=== PATIENT | male | born 1965 | race Caucasian/White ===

== ENCOUNTER 2017-07-21 21:30 | Observation (INO) ==
--- NOTE | 2017-07-21 21:52 | Emergency Department Note ---
START Narrative - START START: I examined this patient and my medical decision-making was reviewed with the Resident Physician. I agree with the documented findings, disposition and treatment plan as described except to the extent set forth below. 51 year old male who was brought in via EMS for chest pain that has been going on for the past 3 days and is has been intermittment sharp and midsternal without radiation. PAtient recieved 4 baby ASA before arrival and is now chest pain free. No previous cardiac workup including stress test or cardiac catherizations. We will do cardiopulomonary workup and likelly admit ot medicien due to multifacotial risk factors.
[2017-07-21 22:10] LABS: Basophils # 0.1 K/mcL (0.0-0.2); Basophils % 0.8 %; Eosinophils # 0.1 K/mcL (0.0-0.6); Eosinophils % 1.7 %; Hematocrit 41.5 % (37.5-50.1); Hemoglobin 14.1 g/dL (12.9-16.9); Immature Granulocytes % 0.3 % (0-4); Lymphocytes # 2.6 K/mcL (0.6-4.6); Lymphocytes % 33.5 %; Mean Corpuscular Hemoglobin 29.7 pg (28.0-33.3); Mean Corpuscular Volume 87.4 fL (83.0-100.0); Mean Platelet Volume 9.4 fL (9.4-12.4); Monocytes # 0.5 K/mcL (0.0-1.3); Monocytes % 6.2 %; Neutrophils # 4.4 K/mcL (1.6-8.9); Platelet Count 243 K/mcL (140-400); Red Blood Count 4.75 M/mcL (4.19-5.50); Red Cell Distribution Width 13.2 % (11.5-14.5); Segmented Neutrophils % 57.5 %
[2017-07-21 22:15] LABS: INR 1.2; Prothrombin Time 12.5 Seconds (9.4-12.1)
[2017-07-21 22:27] LABS: BUN/Creatinine Ratio 7 (6-26); Calcium 9.6 mg/dL (8.6-10.8); Carbon Dioxide 27 mEq/L (19-29); Chloride 108 mEq/L (98-109); Glucose 119 mg/dL (70-99); Osmolality,Calculated 290 (280-300); Potassium 3.9 mEq/L (3.5-4.5); Sodium 141 mEq/L (136-145); eGFR For African Americans > 60 (> 60); eGFR For Non-African Americans > 60 (> 60)
[2017-07-21 22:28] LABS: Blood Urea Nitrogen 5 mg/dL (8-26)
--- NOTE | 2017-07-21 22:52 | Emergency Department Note ---
Disposition Clinical Impression: Chest pain Qualifiers: Chest pain type: precordial pain Qualified Code(s): R07.2 - Precordial pain Disposition: Admitted As Inpatient Condition: Good Chest Pain HPI - General Chief Complaint: ED Chest Pain Stated Complaint: chest pain Time Seen by Provider: 07/21/17 21:32 Source: patient, EMS Limitations: no limitations Vital Signs Reviewed: Yes Nursing Notes Reviewed: Yes - History of Present Illness HPI Narrative: Patient presents today for evaluation of chest pain. Patient states the chest pain began on Thursday and has had intermittent episodes of chest tightness. Patient describes this as left-sided. Is unwilling to characterize anything other than "pain". Does not describe it as sharp or dull but just a "pain that is there". Patient states that he did not initially want to come to the hospital but he has now developed associated nausea with one episode of vomiting as well as dizziness. Patient has not had any previous cardiac evaluation. No significant family history. Severity scale (1-10): 0 - Related Data Home Medications Medication Instructions Recorded Confirmed Acetaminophen [Tylenol] 500 mg PO Q6HR PRN 07/21/17 07/21/17 Duloxetine HCl [Cymbalta] 60 mg PO DAILY 07/21/17 07/21/17 Famotidine [Pepcid] 40 mg PO DAILY 07/21/17 07/21/17 Gabapentin [Neurontin] 300 mg PO TID 07/21/17 07/21/17 Meloxicam [Mobic] 7.5 mg PO BID PRN 07/21/17 07/21/17 Ondansetron HCl [Zofran] 4 mg PO TID PRN 07/21/17 07/21/17 Oxycodone HCl [Oxaydo] 5 mg PO TID PRN 07/21/17 07/21/17 Quetiapine Fumarate [Seroquel] 50 mg PO HS 07/21/17 07/21/17 Sertraline [Zoloft] 100 mg PO DAILY 07/21/17 07/21/17 Tizanidine HCl [Zanaflex] 4 mg PO HS PRN 07/21/17 07/21/17 clonazePAM [Klonopin] 1 mg PO TID PRN 07/21/17 07/21/17 Allergies Allergy/AdvReac Type Severity Reaction Status Date / Time hydrocodone AdvReac Nausea Verified 07/22/17 00:22 risperidone [From Risperdal] AdvReac Anxiety Verified 07/22/17 00:22 Review of Systems: CONSTITUTIONAL: No weight loss, fever, chills, weakness or fatigue. HEENT: Eyes: No visual changes. Ears, Nose, Throat: No hearing loss, difficulty talking or unable to swallow. SKIN: No rash or itching. CARDIOVASCULAR: Chest pain RESPIRATORY: No shortness of breath, cough or sputum. GASTROINTESTINAL: Nausea and vomiting No anorexia or diarrhea. No abdominal pain or blood. GENITOURINARY: No burning on urination or hematuria. NEUROLOGICAL: Dizziness No headache, syncope, paralysis, ataxia, numbness or tingling in the extremities. No change in bowel or bladder control. MUSCULOSKELETAL: No muscle pain, back pain, joint pain or stiffness. Chest Pain PMH - Past Medical History Medical history: Reports: no medical history, non-contributory Psychiatric history: Reports: anxiety, depression - Social History Smoking Status: Current every day smoker Alcohol use: Reports: none Drug use: Reports: none Physical Exam General appearance: NAD, conversant Eyes: anicteric sclerae, moist conjunctivae; PERRL HENT: Atraumatic; oropharynx clear with moist mucous membranes and no mucosal ulcerations Neck: Normal inspection; Trachea midline; FROM, supple Lungs: CTA, with normal respiratory effort and no intercostal retractions CV: RRR, no MRGs ; no significant tenderness to palpation Abdomen: Soft, non-tender; no rebound or gaurding Extremities: No peripheral edema or extremity lymphadenopathy Skin: Normal temperature; no rash, ulcers or lesions Psych: Appropriate mood and affect Neuro: alert and oriented to person, place and time - General Limitations: no limitations General appearance: alert Course - Reevaluation(s) Reevaluation #1: Patient with pulmonary nodule. EKG without significant elevation or depression. Troponin negative. Patient will be admitted for further evaluation and workup. - Consultations Consultation #1: Discussed with hospitalist. Patient accepted for admission. Vital Signs Temperature 98.3 F 07/21/17 21:32 Pulse Rate 84 07/21/17 21:32 Respiratory Rate 20 07/21/17 21:32 Blood Pressure 171/115 07/21/17 21:32 O2 Sat by Pulse Oximetry 99 07/21/17 21:32 Temperature 97.7 F 07/22/17 00:06 Pulse Rate 67 07/22/17 00:06 Respiratory Rate 19 07/22/17 00:06 Blood Pressure 130/75 07/22/17 00:06 O2 Sat by Pulse Oximetry 99 07/22/17 00:06 Oxygen Delivery Oxygen Delivery Room Air Chest Pain - Medical Records Medical records reviewed: Yes I reviewed the patient's medical records. - Lab Data Lab results reviewed: Yes I reviewed the patient's lab results. Result diagrams: 07/22/17 01:43 07/22/17 01:43 Lab Results 07/21/17 07/21/17 07/21/17 Range/Units 21:58 21:58 21:58 WBC 7.7 (4.3-11.1) K/mcL RBC 4.75 (4.19-5.50) M/mcL Hgb 14.1 (12.9-16.9) g/dL Hct 41.5 (37.5-50.1) % MCV 87.4 (83.0-100.0) fL MCH 29.7 (28.0-33.3) pg MCHC 34.0 (31.6-35.5) g/dL RDW 13.2 (11.5-14.5) % Plt Count 243 (140-400) K/mcL MPV 9.4 (9.4-12.4) fL Immature Gran % 0.3 (0-4) % Seg Neutrophils % 57.5 % Lymphocytes % 33.5 % Monocytes % 6.2 % Eosinophils % 1.7 % Basophils % 0.8 % Neutrophils # 4.4 (1.6-8.9) K/mcL Lymphocytes # 2.6 (0.6-4.6) K/mcL Monocytes # 0.5 (0.0-1.3) K/mcL Eosinophils # 0.1 (0.0-0.6) K/mcL Basophils # 0.1 (0.0-0.2) K/mcL PT 12.5 H (9.4-12.1) Seconds INR 1.2 Sodium (136-145) mEq/L Potassium (3.5-4.5) mEq/L Chloride (98-109) mEq/L Carbon Dioxide (19-29) mEq/L BUN (8-26) mg/dL Creatinine (0.72-1.25) mg/dL Est GFR ( Amer) (> 60) Est GFR (Non-Af Amer) (> 60) BUN/Creatinine Ratio (6-26) Glucose (70-99) mg/dL Calculated Osmolality (280-300) Calcium (8.6-10.8) mg/dL Troponin I (0-0.03) ng/mL B-Natriuretic Peptide 14 (0-100) pg/mL 07/21/17 07/21/17 Range/Units 21:58 21:58 WBC (4.3-11.1) K/mcL RBC (4.19-5.50) M/mcL Hgb (12.9-16.9) g/dL Hct (37.5-50.1) % MCV (83.0-100.0) fL MCH (28.0-33.3) pg MCHC (31.6-35.5) g/dL RDW (11.5-14.5) % Plt Count (140-400) K/mcL MPV (9.4-12.4) fL Immature Gran % (0-4) % Seg Neutrophils % % Lymphocytes % % Monocytes % % Eosinophils % % Basophils % % Neutrophils # (1.6-8.9) K/mcL Lymphocytes # (0.6-4.6) K/mcL Monocytes # (0.0-1.3) K/mcL Eosinophils # (0.0-0.6) K/mcL Basophils # (0.0-0.2) K/mcL PT (9.4-12.1) Seconds INR Sodium 141 (136-145) mEq/L Potassium 3.9 (3.5-4.5) mEq/L Chloride 108 (98-109) mEq/L Carbon Dioxide 27 (19-29) mEq/L BUN 5 L (8-26) mg/dL Creatinine 0.68 L (0.72-1.25) mg/dL Est GFR ( Amer) > 60 (> 60) Est GFR (Non-Af Amer) > 60 (> 60) BUN/Creatinine Ratio 7 (6-26) Glucose 119 H (70-99) mg/dL Calculated Osmolality 290 (280-300) Calcium 9.6 (8.6-10.8) mg/dL Troponin I 0.00 (0-0.03) ng/mL B-Natriuretic Peptide (0-100) pg/mL - Radiology Data Radiology results reviewed: Yes I reviewed the patient's radiology results. - EKG Data EKG attestation: Yes I reviewed and interpreted this EKG. EKG results narrative: EKG shows sinus rhythm with ventricular rate of 76. OH interval 166. QRS 90. QTC 388. Patient has no significant ST elevations or depressions. EKG unchanged from previous EKG of 02/08/2004. Heart Score - Score History: Moderately Suspicious EKG: Normal Age: 45-65 Risk Factors: 1-2 risk factors Troponin: Less than normal limit HEART Score Total: 3
[2017-07-21] MEDS ORDERED: 0.9 % Sodium Chloride 1,000 ML IVC ONE (22:53)
[2017-07-21] MEDS ORDERED: Ondansetron 4 MG/2 ML VIAL IVP ONE (22:54)
[2017-07-22] MEDS ORDERED: Ondansetron 4 MG/2 ML VIAL IVP PRN (01:28)
[2017-07-22] MEDS ORDERED: Acetaminophen 325 MG TABLET PO PRN (01:28)
[2017-07-22] MEDS ORDERED: Naloxone 0.4 MG/ML INJ IVP PRN (01:28)
[2017-07-22] MEDS ORDERED: tiZANidine 4 MG TABLET PO PRN (01:37)
[2017-07-22] MEDS ORDERED: clonazePAM 1 MG TABLET PO PRN (01:37)
[2017-07-22] MEDS ORDERED: Ondansetron ODT 4 MG TAB.RAPDIS PO PRN (01:37)
--- NOTE | 2017-07-22 01:45 | Internal Med History&Physical ---
Date of Encounter: 07/22/17 Time of Encounter: 00:15 Assessment and Plan (1) Vertigo Current visit: Yes Status: Acute Etiology is undetermined. Need to rule out cerebral CVA. Symptoms started from 4 days ago. - Place patient on meclizine 25 mg by mouth 3 times a day when necessary for symptoms control. - MRI brain to rule out CVA in am. Patient had back surgery, not sure there is metal inside, will check lumbar spine x-ray prior to MRI. - Zofran when necessary for nausea and vomiting. IV fluid because patient has nausea and vomiting. Follow-up BMP. (2) DVT prophylaxis Current visit: Yes Status: Acute EPCD, may start anticoagulation after MRI has rule out bleeding (less likely). (3) Anxiety Current visit: Yes Status: Acute Continue home medications. (4) Chest pain Current visit: Yes Status: Acute Etiology is undetermined. Need to rule out ACS. EKG and chest x-ray reviewed. Unremarkable. - We will check 3 sets of troponin. - Keep patient on continuous cardiac monitoring to rule out arrhythmia. - Echocardiogram. Qualifiers: Chest pain type: precordial pain Qualified Code(s): R07.2 - Precordial pain Internal Medicine - H&P: HPI Chief complaint: Dizziness Admitted From: Home Plans for Post Hospital Care: Home History of present illness: Mr. Peck is a 51 year old male with history of anxiety presented to the emergency room for dizziness. Patient said dizziness started from 4 days ago, with surrounding spinning. Patient denies tinnitus. Since 3 days ago, symptoms getting worse and patient has nausea and vomiting. Vomiting of stomach content, no blood in it. Patient denies of fever or shortness of breath. Since 3 days ago, patient has intermittent chest pain/heaviness on the left side, lasted about several second to half minute, patient described it like "skipping beats". Patient denies diaphoresis. Patient was admitted for further management. Past Med Surg Social Fam HX - Past Medical History Medical history: GERD Psychiatric history: anxiety, depression, panic disorder - Past Surgical History Surgical History: orthopedic, other (back surgery) - Social History Smoking Status: Current every day smoker Packs per day: .5 Alcohol use: none Drug use: none - Family History Mother Living Status: Still Living Hx Family Musculoskeletal Disorders: Yes (ARTHRITIS) Hx Family Psychosocial Disorders: Yes (DEPRESSION,) Internal Medicine - H&P: Meds Acetaminophen [Tylenol] 500 mg PO Q6HR PRN 07/21/17 [History] Duloxetine HCl [Cymbalta] 60 mg PO DAILY 07/21/17 [History] Famotidine [Pepcid] 40 mg PO DAILY 07/21/17 [History] Gabapentin [Neurontin] 300 mg PO TID 07/21/17 [History] Meloxicam [Mobic] 7.5 mg PO BID PRN 07/21/17 [History] Ondansetron HCl [Zofran] 4 mg PO TID PRN 07/21/17 [History] Oxycodone HCl [Oxaydo] 5 mg PO TID PRN 07/21/17 [History] Quetiapine Fumarate [Seroquel] 50 mg PO HS 07/21/17 [History] Sertraline [Zoloft] 100 mg PO DAILY 07/21/17 [History] Tizanidine HCl [Zanaflex] 4 mg PO HS PRN 07/21/17 [History] clonazePAM [Klonopin] 1 mg PO TID PRN 07/21/17 [History] 3 Allergy/AdvReac Type Severity Reaction Status Date / Time hydrocodone AdvReac Nausea Verified 07/22/17 00:22 risperidone [From Risperdal] AdvReac Anxiety Verified 07/22/17 00:22 All Systems PM: A 10-system review of systems was performed and is negative for pertinent findings except as documented above in the HPI. - Constitutional Vitals: Temp Pulse Resp BP Pulse Ox 97.7 F 67 19 130/75 99 07/22/17 00:06 07/22/17 00:06 07/22/17 00:06 07/22/17 00:06 07/22/17 00:06 General appearance: Present: A&O X 3, no acute distress, answers questions appropriately - Head Head exam: Present: atraumatic, normocephalic - Eye Eye exam: Present: PERRL, conjuntiva pink, sclera anicteric Pupils: Present: PERRL - Neck Neck exam general surgery: Present: supple, trachea midline. Absent: lymphadenopathy - Respiratory Respiratory exam: Present: CTAB. Absent: accessory muscle use, rales, rhonchi, wheezes - Cardiovascular Cardiovascular exam: Present: RRR, +S1, +S2. Absent: diastolic murmur, gallop, rubs, systolic murmur - GI/Abdominal GI/Abdominal exam: Present: normal bowel sounds, soft, no peritoneal signs. Absent: distended, tenderness - Extremities Exam Extremities exam: Present: warm, radial pulses palpable and symmetrical. Absent : calf tenderness, cyanotic, pedal edema - Neurological Exam Neurological exam: Present: CN II-XII intact, oriented X3, no focal deficits. Absent: pronater drift, facial droop, speech deficit - Skin Skin exam: Present: dry, intact Internal Med - H&P Results - Labs CBC & Chem 7: 07/21/17 21:58 07/21/17 21:58
[2017-07-22 01:50] LABS: Basophils # 0.1 K/mcL (0.0-0.2); Basophils % 1.1 %; Eosinophils # 0.2 K/mcL (0.0-0.6); Eosinophils % 3.5 %; Hematocrit 39.9 % (37.5-50.1); Hemoglobin 13.1 g/dL (12.9-16.9); Immature Granulocytes % 0.3 % (0-4); Lymphocytes # 2.5 K/mcL (0.6-4.6); Lymphocytes % 36.8 %; Mean Corpuscular HGB Conc 32.8 g/dL (31.6-35.5); Mean Corpuscular Hemoglobin 29.2 pg (28.0-33.3); Mean Corpuscular Volume 89.1 fL (83.0-100.0); Monocytes # 0.4 K/mcL (0.0-1.3); Monocytes % 6.2 %; Neutrophils # 3.5 K/mcL (1.6-8.9); Platelet Count 228 K/mcL (140-400); Red Blood Count 4.48 M/mcL (4.19-5.50); Red Cell Distribution Width 13.3 % (11.5-14.5); Segmented Neutrophils % 52.1 %
[2017-07-22 02:01] LABS: BUN/Creatinine Ratio 8 (6-26); Calcium 8.7 mg/dL (8.6-10.8); Carbon Dioxide 27 mEq/L (19-29); Chloride 111 mEq/L (98-109); Glucose 103 mg/dL (70-99); Magnesium 1.9 mg/dL (1.6-2.6); Osmolality,Calculated 294 (280-300); Phosphorous 2.2 mg/dL (2.3-4.7); Potassium 4.1 mEq/L (3.5-4.5); Sodium 143 mEq/L (136-145); eGFR For African Americans > 60 (> 60); eGFR For Non-African Americans > 60 (> 60)
[2017-07-22 02:03] LABS: Blood Urea Nitrogen 5 mg/dL (8-26)
[2017-07-22] MEDS: 0.9 % Sodium Chloride 1,000 ML IVC SCH ×2 (02:40→19:23)
[2017-07-22] MEDS: *HR* OxyCODONE Immed Rel 5 MG TABLET PO PRN ×2 (08:24→17:27)
[2017-07-22] MEDS: Gabapentin 300 MG CAPSULE PO SCH ×3 (09:22→21:21)
[2017-07-22] MEDS: Famotidine 20 MG TABLET PO SCH (09:22)
--- NOTE | 2017-07-22 15:49 | Electrocardiograph Report ---
[place] [id number] Test Date: 2017-07-21 Pat Name: Jeremy Peck Department: 104 Room: 3B Gender: M Pet Care Assistant: : 1965 Requested By: Nicholas Nieto Order Number: [id number] Reading MD: Figueroa Saul MD Measurements Intervals [place] Rate: 76 P: 22 FL: 166 QRS: 59 QRSD: 90 T: 52 QT: 358 QTc: 388 Interpretive Statements SINUS RHYTHM MINIMAL VOLTAGE CRITERIA FOR LVH, CONSIDER NORMAL VARIANT Electronically Signed On 07-22-2017 15:47:48 EST by Figueroa Saul MD
--- NOTE | 2017-07-22 17:03 | Event Note ---
Date of Encounter: 07/22/17 Time of Encounter: 17:01 Chart reviewed, including vital signs, diagnostic testing. Patient seen and examined at bedside. Brain MRI negative for stroke. Patient reports episode of chest tightness, describes sensation of feeling like his heart is being squeezed on Thursday evening. Nothing made better or worse. Chest tightness resolved spontaneously. No previous cardiac workup. He is agreeable to stress tests in the morning. Lipid panel and Hgb A1c pending.
[2017-07-23] MEDS ORDERED: Regadenoson 0.4 MG/5 ML SYRINGE IVP ONE (06:15)
[2017-07-23 06:25] LABS: Chol/HDL Ratio 3.4 (0-4.9)
[2017-07-23] MEDS ORDERED: Aspirin 81 MG TAB.CHEW PO SCH (09:00)
[2017-07-23] MEDS: Famotidine 20 MG TABLET PO SCH (09:46)
[2017-07-23] MEDS: Gabapentin 300 MG CAPSULE PO SCH ×2 (09:46→15:17)
[2017-07-23] MEDS: *HR* OxyCODONE Immed Rel 5 MG TABLET PO PRN (09:48)
--- NOTE | 2017-07-23 12:26 | Discharge Summary ---
Date of Encounter: 07/23/17 Time of Encounter: 11:33 - Discharge Diagnosis (1) Chest pain Priority: Primary Status: Resolved Comments: Jeremy Peck is a 51 y/o male with PMH anxiety who presented to [facility] on 07/21 with complaints of chest pain and dizziness. He was placed in observation status for ACS rule out. 1. Chest pain: that started prior to arrival. Received ASA per EMS. Now resolved. Serial troponins negative, EKG without acute ST changes. Stress test did not crossover into [employer] however it was reported negative for infarct/ ischemia . No evidence of ACS. Anxiety could be possibly contributing to chest pain. Recommend follow-up with PCP within one week 2. Dizziness: one episode of dizziness that occurred with chest pain. Resolved without intervention. Brain MRI without acute intracranial abnormality, no acute infarct. TTE with EF 60%. No hypotension noted. Possibly could be related to anxiety. No recurrence of dizziness while inpatient. No further workup indicated at this time. 3. Anxiety: per hx. Cont home Klonopin. 4. Chronic back pain: per hx. Cont home pain medication regimen Qualifiers: Chest pain type: precordial pain Qualified Code(s): R07.2 - Precordial pain (2) Vertigo Priority: Primary Status: Resolved (3) Anxiety Priority: Primary Status: Acute - Discharge Medications Home Medications: Acetaminophen [Tylenol] 500 mg PO Q6HR PRN 07/21/17 [History] Duloxetine HCl [Cymbalta] 60 mg PO DAILY 07/21/17 [History] Famotidine [Pepcid] 40 mg PO DAILY 07/21/17 [History] Gabapentin [Neurontin] 300 mg PO TID 07/21/17 [History] Meloxicam [Mobic] 7.5 mg PO BID PRN 07/21/17 [History] Ondansetron HCl [Zofran] 4 mg PO TID PRN 07/21/17 [History] Oxycodone HCl [Oxaydo] 5 mg PO TID PRN 07/21/17 [History] Quetiapine Fumarate [Seroquel] 50 mg PO HS 07/21/17 [History] Sertraline [Zoloft] 100 mg PO DAILY 07/21/17 [History] Tizanidine HCl [Zanaflex] 4 mg PO HS PRN 07/21/17 [History] clonazePAM [Klonopin] 1 mg PO TID PRN 07/21/17 [History] Allergies/Adverse Reactions: 3 Allergy/AdvReac Type Severity Reaction Status Date / Time hydrocodone AdvReac Nausea Verified 07/22/17 00:22 risperidone [From Risperdal] AdvReac Anxiety Verified 07/22/17 00:22 Procedures/tests Complete & Pending: Procedures Performed prior 72 hours Category Date Time Status NM omar perf SPECT multi [NM] Routine Exams 07/22/17 16:59 Taken MR head/brain wo con [MR] Routine MRI 07/22/17 01:35 Completed EV echocardiogram Routine Y 07/22/17 01:33 Completed SP pharm nuclear stress Routine Y 07/22/17 16:59 Completed Date of admission: 07/21/17 23:35 Primary care physician: Derik Burdick MD Discharging clinician: Rosy Hope Anticipated date of discharge: 07/23/17 - Patient Status Disposition: Home, Self-Care Condition: Good Functional capacity at discharge: independent ambulation Overall status at discharge: patient is progressing back to baseline - Discharge Instructions Instructions: Generalized Anxiety Disorder (DC), Chronic Pain (DC) Follow Up With: Derik Burdick MD [Primary Care Provider] - Forms: ED Satisfaction Letter - Diet and Activity Activity: increase activity as tolerated Diet: advance to your usual diet Interval History: Seen and examined at bedside. Patient says he feels better and would like to discharge home today. He is back to baseline, denies chest pain no dizziness. He complains of chronic back pain that radiates to right leg but this is not new and baseline for him. Stress tests reported as negative per Taylor Del Castillo cardiology [employer]; apparently report did not crossover into [employer]. Hospital course: See assessment and plan for hospital course - Time Spent with Patient Total time spent providing and/or coordinating discharge services: - Constitutional Vitals: Temp Pulse Resp BP Pulse Ox 98.7 F 75 12 137/87 97 07/23/17 10:48 07/23/17 10:48 07/23/17 10:48 07/23/17 10:48 07/23/17 10:48 General appearance: Present: A&O X 3, no acute distress, answers questions appropriately - Head Head exam: Present: atraumatic, normocephalic - Eye Eye exam: Present: PERRL, conjuntiva pink, sclera anicteric Pupils: Present: PERRL - Neck Neck exam general surgery: Present: supple, trachea midline. Absent: lymphadenopathy - Respiratory Respiratory exam: Present: CTAB. Absent: accessory muscle use, rales, rhonchi, wheezes - Cardiovascular Cardiovascular exam: Present: RRR, +S1, +S2. Absent: diastolic murmur, gallop, rubs, systolic murmur - GI/Abdominal GI/Abdominal exam: Present: normal bowel sounds, soft, no peritoneal signs. Absent: distended, tenderness - Extremities Exam Extremities exam: Present: warm, radial pulses palpable and symmetrical. Absent : calf tenderness, cyanotic, pedal edema - Neurological Exam Neurological exam: Present: CN II-XII intact, oriented X3, no focal deficits. Absent: pronater drift, facial droop, speech deficit - Skin Skin exam: Present: dry, intact
[2017-07-23 15:09] VITALS: BP 125/85
== END 2017-07-23 17:24 | disposition home or self-care (01) ==
LOC: EMEROO 21:30 → 3BNU 21:30
PROVIDERS: ADMIT Internal Medicine; ATTEND Registered Nurse